=== PATIENT | female | born 1960 | race Caucasian/White ===

== ENCOUNTER 2016-08-12 12:09 | Emergency (ER) | payer OTHER ==
[2016-08-12] MEDS ORDERED: IOPAMIDOL 370 (76%) 100 ML VIAL IV ONE (12:10)
[2016-08-12] MEDS ORDERED: MECLIZINE HCL 25 MG TABLET ONE (13:04)
[2016-08-12 13:53] LABS: CALCIUM 9.6 mg/dL (8.6-10.3)
--- NOTE | 2016-08-12 15:07 | CT ---
NECK CTA HISTORY: Dizziness.. Following the administration of 90 cc of Isovue 370 contiguous axial images were acquired from the frontal horns to the level of the ayah. Three-dimensional rotational reformatted images and maximum intensity projection imaging was reconstructed on a dedicated workstation and reviewed separately. Diameter stenosis was calculated utilizing NASCET criteria. AORTIC ARCH: Ascending aortic ectasia up to 3.6 cm in caliber. Standard triple-vessel configuration.. INNOMINATE AND SUBCLAVIAN ARTERIES: No high-grade stenosis or occlusion.. VERTEBRAL ARTERIES: Mildly dominant left vertebral artery. No high-grade stenosis or occlusion.. COMMON CAROTID ARTERIES: Moderate tortuosity with asymmetrically low bifurcation on the right. No high-grade stenosis or occlusion. INTERNAL CAROTID ARTERIES: Moderate tortuosity. 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 SOFT TISSUES: No gross adenopathy or mass lesion noted.. Airway patent. Low-attenuation foci of the thyroid gland up to 5 mm in size. VISIBLE LUNGS: No gross airspace disease. OSSEOUS STRUCTURES: Minor cervical spondylosis. IMPRESSION: 1. No high-grade stenosis or occlusion of the common or internal carotid arteries. 2. 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 3. Ascending aortic ectasia. 4. Minor changes of cervical spondylosis. Findings discussed with Dr. Cummings of the Emergency Medicine clinical service on 08/12/2016 at 1501 hours.
--- NOTE | 2016-08-12 15:08 | CT ---
Head CT with contrast Head CT without contrast HISTORY: Dizziness Prior to and following administration of 90 cc Isovue 370 intravenous contrast contiguous axial images acquired from skull base to vertex. Three-dimensional imaging was not performed COMPARISON: 03/21/2006. BRAIN VOLUME:Grossly unremarkable for patient age. VENTRICULAR SIZE:No gross ventriculomegaly. FOCAL MASS EFFECT:None. ACUTE INTRACRANIAL HEMORRHAGE:None. CALVARIUM:Grossly intact. VISIBLE PARANASAL SINUSES AND MASTOID AIR CELLS:Grossly clear. POSTERIOR CIRCULATION: No high-grade stenosis or occlusion. ANTERIOR CIRCULATION: No high-grade stenosis or occlusion noted. The ophthalmic arteries are seen. However note is made of apparent dissection flap with focal ectasia of the distal cervical internal carotid artery up to 9 mm in width with extension of flap to the petrous segment. There is no thrombosis of the false lumen. POST CONTRAST IMAGING: No dominant focal enhancing lesion identified. SACCULAR ANEURYSM: Ectasia of the distal cervical left internal carotid artery as above. IMPRESSION: 1. 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 Associated ectasia of the distal cervical internal carotid artery. 2. No gross mass effect, ventriculomegaly, or acute intracranial hemorrhage. 3. No high-grade stenosis, occlusion, or dominant saccular aneurysm. 4. No abnormally enhancing lesions. Findings discussed with Dr. Cummings of the Emergency Medicine clinical service on 08/12/2016 at 1501 hours.
[2016-08-12] MEDS ORDERED: ASPIRIN (UNCOATED) 325 MG TABLET ONE (15:29)
== END 2016-08-12 16:26 | disposition short-term general hospital (02) ==
LOC: ED 12:09
DX: R42 Dizziness and giddiness (principal); I77.71 Dissection of carotid artery; I25.42 Coronary artery dissection; I10 Essential (primary) hypertension
CPT/HCPCS: 80048; 70450; 70496; 70498; 99284; 99285; A9270 ×2; Q9967